=== PATIENT | female | born 1955 | race Caucasian/White ===

== ENCOUNTER 2019-12-31 08:11 | Outpatient (CLI) | payer MEDICARE, SELFPAY ==
--- NOTE | ~2019-12-31 | XR_ITS ---
EXAMINATION: XR barium swallow DATE: 12/31/2019 09:22 INDICATION: Esophagitis without bleeding, nausea and vomiting, patient with history of gastric lap ba nd surgery with difficulty swallowing TECHNIQUE: The patient drank thick barium, gas-producing crystals, and thin barium. Fluoroscopy of th e hypopharynx and esophagus was performed. Fluoroscopy exposure time was 0.3 minutes. The DAP for thi s procedure was 9 Gycm2. COMPARISON: None. FINDINGS: There is no mass or stricture of the esophagus. The distal esophagus is mildly distended. T here is slow passage of ingested material throughout the gastric lap band. No gastroesophageal reflux is identified with provocative maneuvers. IMPRESSION: 1. Mild distention of the distal esophagus and slow passage of ingested material through the gastric lap band. Reviewed, dictated and finalized at location A. [employer]INEERING TEACHER IMPRESSION: 1. Mild distention of the distal esophagus and slow passage of ingested materia l through the gastric lap band.
== END 2019-12-31 08:12 | disposition home or self-care (01) ==
LOC: ANHIMG 08:18
PROVIDERS: PCP Nurse Practitioner Adult Health; Visit Provider Nurse Practitioner Adult Health
DX: K20.90 Esophagitis, unspecified without bleeding (principal)
CPT/HCPCS: 74220

== ENCOUNTER 2021-05-25 15:02 | Outpatient (CLI) | payer MEDICARE, SELFPAY ==
--- NOTE | ~2021-05-25 | US_ITS ---
US venous doppler LE RT DATE: 05/25/2021 16:34 INDICATION: Right calf pain TECHNIQUE: Real-time and color flow imaging and Doppler analysis of the veins of the right lower extr emity COMPARISON: None FINDINGS: The right greater saphenous vein is patent. There is spontaneous and phasic flow and normal augmentation and color flow signal and normal compression of the deep veins of the right lower extre mity. IMPRESSION: No evidence of deep venous thrombosis of right leg Reviewed, dictated and finalized at [facility]. Reviewed, dictated and finalized at location A.
== END 2021-05-25 15:03 | disposition home or self-care (01) ==
PROVIDERS: PCP Nurse Practitioner Adult Health; Visit Provider Nurse Practitioner Adult Health
DX: M79.661 Pain in right lower leg (principal)
CPT/HCPCS: 93971

== ENCOUNTER → 2022-05-16 12:18 | Outpatient (CLI) | payer MEDICARE, SELFPAY ==
--- NOTE | ~2022-05-16 | MM_ITS ---
EXAMINATION: MM screening joseph BI w frankie HISTORY: Screening TECHNIQUE: Craniocaudal and mediolateral oblique 3-D tomosynthesis images were obtained and synthetic 2-D images were generated. CAD analysis was submitted and interpreted. COMPARISON: No prior mammogram is available for comparison at this institution. BREAST PARENCHYMAL COMPOSITION: There are scattered areas of fibroglandular density. FINDINGS: There is a focal asymmetry anteriorly just lateral to the nipple on CC view of the left ernesto ast. There are no suspicious masses, calcifications or architectural distortion in the right breast t o suggest malignancy. IMPRESSION: 1. Left breast asymmetry. 2. Additional mammographic views and possible breast ultrasound are recommended. BI-RADS Category 0: Incomplete: Needs additional imaging evaluation. Reviewed, dictated and finalized at location A. IMPRESSION: 1. Left breast asymmetry. 2. Additional mammographic views and possible breast ultrasound are recommended . BI-RADS Category 0: Incomplete: Needs additional imaging evaluation.
== END ==
PROVIDERS: PCP Registered Nurse; Visit Provider Registered Nurse
DX: Z12.31 Encounter for screening mammogram for malignant neoplasm of breast (principal); R92.8 Other abnormal and inconclusive findings on diagnostic imaging of breast
CPT/HCPCS: 77063; 77067

== ENCOUNTER → 2023-04-30 08:43 | Outpatient (CLI) | payer MEDICARE, SELFPAY ==
--- NOTE | ~2023-04-30 | MMUS_ITS ---
EXAMINATION: MM diagnostic joseph BI w frankie, US breast BI complete HISTORY: Focal left breast mammographic asymmetry reported in the central outer aspect of the left br east anteriorly on 05/16/2022 screening mammogram TECHNIQUE: Bilateral full field ML, MLO and CC and spot left MLO, MLO and CC 3-D tomosynthesis images were performed and synthetic 2-D images were generated. CAD analysis was submitted and interpreted. High resolution bilateral complete breast ultrasound examination including all 4 quadrants and subare olar areas was performed. COMPARISON: 05/16/2022 and 03/06/2019 bilateral screening mammogram examinations BREAST PARENCHYMAL COMPOSITION: The breasts are heterogeneously dense, which may obscure small masses . FINDINGS: MAMMOGRAPHIC FINDINGS: There is bilateral mammographic asymmetry with question of architectural distortion in the superolate ral right subareolar area and anterior outer left breast on CC projection. Occasional benign calcifications. Heterogeneously dense stroma may obscure masses. Bilateral complete breast ultrasound examination was performed. ULTRASOUND: No suspicious mass or shadowing, cyst or other significant sonographic abnormality of either breast i s detected. IMPRESSION: 1. No evidence of malignancy 2. Routine annual mammographic screening is recommended. BI-RADS Category 1: Negative Reviewed, dictated and finalized at location A. 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 No evidence of malignancy 2. Routine annual mammographic screening is recommended. BI-RADS Category 1: Negative
== END ==
PROVIDERS: PCP Registered Nurse; Visit Provider Registered Nurse
DX: R92.8 Other abnormal and inconclusive findings on diagnostic imaging of breast (principal)
CPT/HCPCS: 76641; 77062; 77066; G0279

== ENCOUNTER 2023-11-15 08:15 | Outpatient (CLI) | payer MEDICARE, SELFPAY ==
--- NOTE | ~2023-11-15 | DEXA_ITS ---
Bone Density Report Name: OLY ROSAS Age: 68 Sex: Female Ethnicity: White Date of : 1955 Indication: postmenopausal; screening for osteoporosis; height loss; Referring Provider: ADEEL, ZANE Study: Bone densitometry was performed. Exam Date: November 15, 2023 Accession number: [id number] Bone Density: Region BMD T-score Z-score Classification AP Spine(L1, L2) 0.763 -2.0 0.0 Osteopenia Femoral Neck (Left) 0.414 -3.9 -2.1 Osteoporosis Total Hip (Left) 0.585 -2.9 -1.4 Osteoporosis Femoral Neck (Right) 0.435 -3.7 -2.0 Osteoporosis Total Hip (Right) 0.606 -2.8 -1.3 Osteoporosis Total Hip Mean 0.595 -2.9 -1.4 Osteoporosis World Health Organization criteria for BMD impression classify patients as: Normal (T-score at or above -1.0), Osteopenia (T-score between -1.0 and -2.5), or Osteoporosis (T-score at or below -2.5). 10-year Fracture Risk: FRAX not reported because: Some T-score for Spine Total or Hip Total or Femoral Neck at or below -2.5 Clinical Information Provided by Patient: Patient maximum height was 65 No regular weight bearing exercise Drinks caffeinated beverages Onset of menses at age 12 Number of children 1 Impression: The patient has osteoporosis, based on the Left Femoral Neck T-score. Discussion: HIGH RISK OF FRACTURE. BONE DENSITY IS UNDESIRABLY LOW AT ONE OR MORE SKELETAL SITES, CONSISTENT WITH OSTEOPOROSIS. ALSO, BONE DENSITY IS LOWER THAN EXPECTED FOR AGE AND SEX AT ONE OR MORE SKELETAL SITES; RECOMMEND A DILIGENT SEARCH FOR SECONDARY CAUSES OF BONE LOSS. This patient's lowest T-score meets the World Health Organization's (WHO) criteria for osteoporosis at one or more sites (T-score -2.5 or below). In untreated patients, the risk of osteoporotic fracture increases approximately two-fold for each 1.0 SD decrease in T-score. Low bone density is not the only risk factor for fracture; also consider factors such as patient's age, frailty or poor health, risk of falling, risk of injury, previous osteoporotic fracture, family history of osteoporosis, cigarette smoking, low body weight, etc. Not everyone with low bone mineral density has osteoporosis; osteomalacia and other metabolic bone disorders should also be considered. Patients who have osteoporosis should be evaluated for specific diseases and conditions (secondary causes) that may cause or contribute to bone loss. The [place] [employer]ocrin[employer] (AACE) and National Osteoporosis Foundation (NOF) recommend pharmacologic intervention for all postmenopausal women whose T-score is in this range. Also, this patient's bone mineral density is below the range considered normal for healthy age-, sex-, and race-matched controls at least one site (Z-score -2.0 or below). This warrants careful evaluation fo
== END 2023-11-15 08:16 | disposition home or self-care (01) ==
LOC: ANHIMG 08:16
PROVIDERS: PCP Registered Nurse; Visit Provider Registered Nurse
DX: M81.0 Age-related osteoporosis without current pathological fracture (principal); M85.88 Other specified disorders of bone density and structure, other site
CPT/HCPCS: 77080